=== PATIENT | female | born 1975 | race Caucasian/White ===

== ENCOUNTER 2017-02-03 22:40 | Emergency (ER) | payer OTHER ==
[~2017-02-03] VITALS: Ht 157.5 cm; Wt 80.9 kg
[~2017-02-03 22:40] MED LIST: IBUP-1547 PO
[2017-02-03 22:43] VITALS: BP 142/89
== END 2017-02-04 01:27 | disposition left against medical advice (07) ==
LOC: EMS 22:41
DX: R20.2 Paresthesia of skin (principal); Z53.21 Procedure and treatment not carried out due to patient leaving prior to being seen by health care provider